=== PATIENT | male | born 1955 | race Caucasian/White ===

== ENCOUNTER → 2020-07-16 | Outpatient (CLI) | payer OTHER ==
--- NOTE | 2020-07-16 11:00 | 2DMMODE ---
[facility] [place] [address] 2 D/M-MODE ECHOCARDIOGRAM Name: VERNON MARES Julia Room #: REG BORIS Kalpana#: [id number] Admission: 07/16/20 Attend Phys: Andre Swanson MD Discharge: Date of : 59 Report #: [id number] THIS REPORT FOR: cc: Max Mann III, MD, III, Charles R. MD Park, Jin S. MD ~ APPROVED REPORT Study performed: 07/16/2020 09:05:19 EXAM: Comprehensive 2D, Doppler, and color-flow Echocardiogram Patient Location: Echo lab Room #: 2 Status: routine BSA: 2.66 HR: 82 bpm Rhythm: Atrial Fibrillation Other Information Study Quality: Good Indications A-fib. Hx: HTN, HLP. 2D Dimensions RVDd: 47.89 mm IVSd: 10.60 (7-11mm) LVOT Diam: 22.14 (18-24mm) LVDd: 54.30 mm PWd: 10.64 (7-11mm) Ascending Ao: 33.53 (22-36mm) LVDs: 34.92 (25-40mm) Aortic Root: 33.73 mm IVC: 23.00 mm Volumes Left Atrial Volume (Systole) Single Plane 4CH: 70.18 mL Single Plane 2CH: 128.81 mL LA ESV Index: 41.00 mL/m2 Aortic Valve LVOT Max P.60 mmHg LVOT Max V: 0.63 m/s Pulmonary Valve [facility] [address] [place] [address] 2 D/M-MODE ECHOCARDIOGRAM Name: VERNON MARES Room #: REG [facility]#: [id number] Admission: 07/16/20 Attend Phys: Andre Swanson MD Discharge: Date of : 59 Report #: [id number] PV Peak Ajit.: 0.33 m/s PV Peak Gr.: 0.45 mmHg Tricuspid Valve TR Peak Ajit.: 2.80 m/s TR Peak Gr.: 31.30 mmHg PA Pressure: 41.00 mmHg Left Ventricle The left ventricle is normal size. There is normal left ventricular wall thickness. Left ventricular systolic function is moderate to severely decreased. LVEF is 30-35%. This study is not technically sufficient to allow evaluation of the LV diastolic function due to atrial fibrillation. Right Ventricle Right ventricle is dilated. The right ventricular systolic function is normal. Atria Left atrium is dilated. Right atrium is dilated. Aortic Valve The aortic valve is normal in structure. No aortic regurgitation is present. There is no aortic valvular stenosis. Mitral Valve The mitral valve is normal in structure. Moderate mitral regurgitation. No evidence of mitral valve stenosis. Tricuspid Valve The tricuspid valve is normal in structure. Mild to moderate tricuspid regurgitation. Estimated PAP 41mmHg. Pulmonic Valve The pulmonary valve is normal in structure. There is no pulmonic valvular regurgitation. Great Vessels The aortic root is normal in size. The ascending aorta is normal in size. IVC is dilated and collapses >50% with inspiration. Pericardium There is no pericardial effusion. <Conclusion> [facility] [address] [place] [address] 2 D/M-MODE ECHOCARDIOGRAM Name: VERNON MARES Julia [facility] #: [facility] [id number] Admission: 07/16/20 Attend Phys: Andre Swanson MD Discharge: Date of : 59 Report #: [id number] The left ventricle is normal size. Left ventricular systolic function is moderate to severely decreased. Right ventricle is dilated. Right atrium is dilated. Left atrium is dilated. The aortic valve is normal in structure. Moderate mitral regurgitation. Mild to moderate tricuspid regurgitation. Estimated PAP 41mmHg. <ELECTRONICALLY SIGNED> By: Andre Swanson MD 07/16/20 1059 58 Andre Swanson MD /INF
== END ==
LOC: CV 08:58
PROVIDERS: ATTEND Internal Medicine Cardiovascular Disease
DX: I08.1 Rheumatic disorders of both mitral and tricuspid valves (principal); I48.91 Unspecified atrial fibrillation

== ENCOUNTER → 2020-08-06 | Outpatient (CLI) | payer OTHER ==
[~2020-08-06] VITALS: Ht 195.6 cm; Wt 131.8 kg
[~2020-08-06] MED LIST: CARVEDILOL3.125 MG PO; FLOMAX0.4 MG PO; LANOXIN 0.25M0.25 M1 PO; PRAVACHOL 20 MG20 M1 PO; PROSCAR 5MG TABL5 MG PO; XARELTO20 MG PO
[2020-08-06 08:28] VITALS: BP 115/87
[2020-08-06 08:40] LABS: HEMATOCRIT 52.2 % (42.0-52.0); HEMOGLOBIN 17.6 gm/dL (14.0-18.0); MCHC 33.8 g/dL (28.0-37.0); MCV 88.8 fL (80.0-100.0); RBC 5.87 mil/uL (4.50-6.00); RDW 14.5 % (10.5-14.5); WBC 7.5 thou/uL (4.0-11.0)
[2020-08-06 09:35] LABS: CALCIUM 9.1 mg/dL (8.5-10.1); CREATININE 1.2 mg/dL (0.7-1.3); POTASSIUM 4.1 mmol/L (3.5-5.1)
[2020-08-06 10:07] LABS: BE(vivo) 0 mmol/L (-2 to +3); HCO3 25.9 mmol/L (22.0-26.0); pH 7.368 (7.360-7.450); sO2 72.4 % (92.0-98.0)
[2020-08-06 10:09] LABS: PO2 39.5 mmHg (80.0-100.0)
[2020-08-06 10:10] LABS: BE(vivo) -0.7 mmol/L (-2 to +3); HCO3 23.1 mmol/L (22.0-26.0); PCO2 36.3 mmHg (35.0-45.0); PO2 112.3 mmHg (80.0-100.0); pH 7.422 (7.360-7.450); sO2 98.2 % (92.0-98.0)
--- NOTE | 2020-08-06 14:20 | CATHLAB ---
[facility] [place] [address] INVASIVE PROCEDURE REPORT Name: VERNON MARES Room #: REG BORIS JonesNirmalaYessyNirmala#: [id number] Admission: 08/06/20 Attend Phys: Andre Swanson MD Discharge: Date of : 59 Report #: [id number] THIS REPORT FOR: cc: Max Mann III, MD, III, Charles R. MD Park, Jin S. MD ~ APPROVED REPORT Study performed: 08/06/2020 09:20:57 Patient Details Patient Status: Out-Patient Room #: The patient is a 64 year-old male Event Personnel Andre Swanson Air Filler, Susana Núñez RN RN, Marcelo Arrington RTR Monitor, Meryl Magdaleno RTR, CONTAMINATION CONSULTANT Scrub Procedures Performed Art Access - R femoral artery* Asif Access - R femoral vein Right and Left Heart Cath w/or w/o Coronarie [id number] [facility] 62113 Initial Mod Sed Same Phys/QHP Gr5y [id number] [id number] Mod Sed Same Phys/QHP Ea [id number] Hemostasis with Manual pressure Indication Atrial fibrillation, Dyspnea, Cardiomyopathy Risk Factors HypercholesterolemiaPhysical Activity, Hypertension Procedure Narrative The Right Groin^ was infiltrated with 1% Lidocaine subcutaneous anesthesia. A Right Heart Catheterization was performed with a 7 Fr. [place]-Ajith catheter and pressure were recorded. Cardiac outputs were obtained by the Rober method. A PINNACLE 4FR Sheath #[id number] sheath was inserted into the RFA^. Coronary angiography was performed using coronary diagnostic catheters. The right coronary system was accessed and visualized with a JR4 catheter. The left coronary system was accessed and visualized with a JL4 catheter. The left ventricle was accessed and visualized with a PIGTAIL catheter. Left ventricular/Aortic Valve gradient assessed via catheter pullback. Left ventriculogram was performed in 30 degree projection. Hemostasis was obtained with manual pressure following sheath removal without any complications. The patient tolerated the procedure well and there [facility] [address] [place] [address] INVASIVE PROCEDURE REPORT Name: VERNON MARES Room #: REG CL [facility]#: [id number] Admission: 08/06/20 Attend Phys: Andre Swanson MD Discharge: Date of : 59 Report #: [id number] were no complications associated with the procedure. There was no hematoma. Intraoperative Conscious Sedation Sedation start time: 946 Case end Time: 1025 Fentanyl 50 mcg Versed 1 mg Fluoro Time: 1139.00 minutes Dose: DAP 8186.00 cGycm2 1139 mGy Contrast Type and Amount: Visipaque 70 ml Coronary Angiography The patient's coronary anatomy is co- dominant. Diagnostic Cath Left Main The left main artery is a large-caliber vessel, angiographically normal. LAD The LAD is a moderate-sized caliber vessel, patent with no flow-limiting lesions. Diagonal 1 This is a small to moderate-sized caliber vessel, patent with no flow-limiting lesions. Diagonal 2 This is a small to moderate-sized caliber vessel, patent with no flow-limiting lesions. Circumflex The left circumflex artery is a codominant vessel, patent with no flow-limiting lesions. OM1 This is a small to moderate-sized caliber vessel, patent with no flow-limiting lesions. OM2 This is a moderate-sized caliber vessel, patent with no flow-limiting lesions. OM3 This is a moderate-sized caliber vessel, patent with no flow-limiting lesions. Right Coronary The RCA is a moderate-sized caliber vessel, patent with no flow-limiting lesions. R PDA This is a moderate-sized caliber vessel, patent with no flow-limiting lesions. Left Ventriculography The left ventricle is in size with Decreased contractility. The left ventricular ejection fraction is estimated to be 30%. Hemodynamics The right atrial mean pressure is 12 mmHg. The right ventricular pressure is 27/10 mmHg. The pulmonary artery pressure is 28/20 mmHg with a mean of 23 mmHg. The mean pulmonary capillary wedge pressure is 20 mmHg. The aortic pressure is 122/92 mmHg with a mean of [address] [facility] [address] [place] [address] INVASIVE PROCEDURE REPORT Name: VERNON MARES Room #: REG CL Wendy#: [id number] Admission: 08/06/20 Attend Phys: Andre Swanson MD Discharge: Date of : 59 Report #: [id number] mmHg. The left ventricular pressure is 116/15 mmHg with a mean of mmHg. The left ventricular end diastolic pressure is 22 mmHg. PaO2 saturation is 72.00 %. Arterial saturation is 96.80 %. The cardiac output using the Rober method is 5.42 L/min. The cardiac index using the Rober method is 2.07 L/min/m2. Conclusion 1. Nonischemic cardiomyopathy. 2. Angiographically normal coronary arteries. 3. Recommend guideline directed medical therapy. <ELECTRONICALLY SIGNED> By: Andre Swanson MD 08/06/20 1419 1419 1419 Andre Swanson MD /INF
== END | disposition home or self-care (01) ==
LOC: CATH 07:41
PROVIDERS: ATTEND Internal Medicine Cardiovascular Disease
DX: I42.9 Cardiomyopathy, unspecified (principal); I48.91 Unspecified atrial fibrillation; R06.00 Dyspnea, unspecified; I10 Essential (primary) hypertension; E78.00 Pure hypercholesterolemia, unspecified; K21.9 Gastro-esophageal reflux disease without esophagitis; Z98.890 Other specified postprocedural states; Z79.899 Other long term (current) drug therapy; Z79.01 Long term (current) use of anticoagulants

== ENCOUNTER → 2020-08-08 | Outpatient (CLI) | payer OTHER | LOC: LAB 10:15 | PROVIDERS: ATTEND Internal Medicine Cardiovascular Disease | DX: Z01.812 Encounter for preprocedural laboratory examination (principal); Z20.828 Contact with and (suspected) exposure to other viral communicable diseases ==

== ENCOUNTER → 2020-08-12 | Outpatient (CLI) | payer OTHER ==
[~2020-08-12] VITALS: Ht 195.6 cm; Wt 131.5 kg
[~2020-08-12] MED LIST changes: +AMIODARONE HCL400 MG PO
[2020-08-12 07:13] VITALS: BP 117/77
[2020-08-12 08:33] LABS: ABSOLUTE NEUTROPHILS 4.7 thou/uL (1.4-8.2); BASOPHILS 1.5 % (0.0-2.0); EOSINOPHILS 1.6 % (0.0-3.0); HEMATOCRIT 45.5 % (42.0-52.0); HEMOGLOBIN 15.1 gm/dL (14.0-18.0); LYMPHOCYTES 28.1 % (24.0-44.0); MCHC 33.2 g/dL (28.0-37.0); MCV 90.2 fL (80.0-100.0); PLATELET COUNT 227 thou/uL (150-400); POLYS 60.8 % (36.0-66.0); RBC 5.04 mil/uL (4.50-6.00); RDW 14.3 % (10.5-14.5); WBC 7.8 thou/uL (4.0-11.0)
--- NOTE | 2020-08-12 08:44 | TEE ---
[facility] [place] [address] TRANSESOPHAGEAL ECHOCARDIOGRAM Name: VERNON MARES Room #: REG BORIS Villavicencio.#: [id number] Admission: 08/12/20 Attend Phys: Gal Kahn MD, Discharge: Date of : 59 Report #: [id number] THIS REPORT FOR: cc: Max Mann III, MD, III,Max Kahn,Gal Joe MD [facility] ~ APPROVED REPORT Study performed: 08/12/2020 07:57:44 EXAM: Transesophageal Echocardiogram with Doppler and cardioversion Patient Location: Out-Patient Room #: 9 Status: routine BSA: 2.66 HR: 114 bpm BP: 129/83 mmHg Rhythm: Atrial Fibrillation Other Information Study Quality: Excellent Indications Atrial Fibrillation Echo Enhancing Agent Indication: Rule out Shunt Agent(s) / Amount(s) Used: Agitated Saline 7 cc Procedure After obtaining informed consent, patient underwent transesophageal echo in the [facility]. Type of Sedation : Conscious Sedation Sedation was administered by Susana Juarez RN. Sedation was achieved intravenously with: Versed (4 mg) Fentanyl (100 mcg) Transesophageal probe was inserted and advanced into esophagus without difficulty by Gal Kahn MD. Echo enhancement indication: R/O Septal defect. Echo enhancement agent administered: Agitated Saline The KERRY was performed without complications. Synchronized Cardioversion acheived with 150 Joules after 1 attempt(s). [facility] [place] [address] TRANSESOPHAGEAL ECHOCARDIOGRAM Name: VERNON MARES Room #: REG [facility]#: [id number] Admission: 08/12/20 Attend Phys: Gal Kahn, Discharge: Date of : 59 Report #: [id number] Rhythm following Synchronized Cardioversion: Normal Sinus Rhythm Throughout the procedure, the blood pressure, pulse oximetry, cardiac rhythm, and rate were monitored. The patient tolerated the procedure without adverse effects. Recovery from conscious sedation was uneventful and vital signs were stable. Left Ventricle The left ventricle is normal size. There is global hypokinesis of the left ventricle. There is normal left ventricular wall thickness. Left ventricular systolic function is moderately decreased. LVEF is 35-40%. Right Ventricle The right ventricle is normal size. The right ventricular systolic function is normal. Atria Left atrium is dilated. No thrombus is visualized in the left atrium or appendage. No shunting by contrast bubble injection Right atrium is dilated. Aortic Valve The aortic valve is normal in structure. No aortic regurgitation is present. There is no aortic valvular stenosis. Mitral Valve The mitral valve is normal in structure. Moderate mitral regurgitation. No evidence of mitral valve stenosis. Tricuspid Valve The tricuspid valve is normal in structure. There is no tricuspid valve regurgitation noted. Pulmonic Valve The pulmonary valve is normal in structure. There is no pulmonic valvular regurgitation. Great Vessels The aortic root is normal in size. The ascending aorta is normal in size. IVC is normal in size and collapses >50% with inspiration. Pericardium There is no pericardial effusion. [facility] [address] [place] [address] TRANSESOPHAGEAL ECHOCARDIOGRAM Name: VERNON MARES Room #: REG [facility]#: [id number] Admission: 08/12/20 Attend Phys: Gal Kahn, Discharge: Date of : 59 Report #: [id number] <Conclusion> Left ventricular systolic function is moderately decreased. There is global hypokinesis of the left ventricle. LVEF is 35-40%. Both atria are dilated. No thrombus is visualized in the left atrium or appendage. No shunting by contrast bubble injection The aortic valve is normal in structure. No aortic regurgitation or stenosis The mitral valve is normal in structure. Moderate mitral regurgitation. There is no pericardial effusion. Successful cardioversion of atrial fibrillation to sinus rhythm following a single 150 J biphasic synchronous shock. <ELECTRONICALLY SIGNED> By: Gal Kahn MD, FACC 08/12/2044 3 3 Gal Kahn MD, FACC /INF
[2020-08-12 08:48] LABS: CALCIUM 8.5 mg/dL (8.5-10.1); CREATININE 1.1 mg/dL (0.7-1.3); POTASSIUM 4.1 mmol/L (3.5-5.1)
[2020-08-12 08:54] LABS: TOTAL BILIRUBIN 0.6 mg/dL (0.2-1.0); TOTAL PROTEIN 6.3 g/dL (6.4-8.2)
== END | disposition home or self-care (01) ==
LOC: CATH 06:24
PROVIDERS: Internal Medicine Cardiovascular Disease; ATTEND Internal Medicine
DX: I48.91 Unspecified atrial fibrillation (principal); I34.9 Nonrheumatic mitral valve disorder, unspecified; I10 Essential (primary) hypertension; E78.5 Hyperlipidemia, unspecified; I42.9 Cardiomyopathy, unspecified; K21.9 Gastro-esophageal reflux disease without esophagitis; E78.00 Pure hypercholesterolemia, unspecified; Z98.890 Other specified postprocedural states; Z79.899 Other long term (current) drug therapy; Z79.01 Long term (current) use of anticoagulants; Z90.49 Acquired absence of other specified parts of digestive tract

== ENCOUNTER → 2020-11-20 | Outpatient (CLI) | payer OTHER | LOC: SJCVCIMAG 08:56 | PROVIDERS: ATTEND Internal Medicine | DX: I08.8 Other rheumatic multiple valve diseases (principal); I42.9 Cardiomyopathy, unspecified; I10 Essential (primary) hypertension; I48.0 Paroxysmal atrial fibrillation ==